=== PATIENT | female | born 1985 | race Two or more races ===

== ENCOUNTER 2019-05-19 20:15 | Emergency (ER) | payer SELFPAY ==
[~2019-05-19] VITALS: Ht 160 cm; Wt 161.5 kg
[2019-05-19 20:15] VITALS: BP 145/83
[2019-05-19] MEDS ORDERED: oxyCODONE/APAP (5/325 MG) 1 UDTAB TABLET ONE (20:46)
[2019-05-19] MEDS ORDERED: ONDANSETRON 4 MG TAB.RAPDIS ONE (20:46)
[2019-05-19] MEDS ORDERED: ONDANSETRON 4 MG TAB.RAPDIS SL ONE (21:00)
[2019-05-19] MEDS ORDERED: oxyCODONE/APAP (5/325 MG) 1 UDTAB TABLET PO ONE (21:00)
== END 2019-05-19 22:10 | disposition home or self-care (01) ==
LOC: ER 20:17
DX: M54.5 Low back pain (principal); M25.521 Pain in right elbow; E66.01 Morbid (severe) obesity due to excess calories; Z68.44 Body mass index [BMI] 60.0-69.9, adult; W01.0XXA Fall on same level from slipping, tripping and stumbling without subsequent striking against object, initial encounter; Z91.81 History of falling; Y93.89 Activity, other specified; Y92.89 Other specified places as the place of occurrence of the external cause; Y99.8 Other external cause status
CPT/HCPCS: 70450; 71045; 72020; 73080; 99284; Q0162